=== PATIENT | female | born 1945 | race Caucasian/White ===

== ENCOUNTER 2018-02-28 17:35 | Emergency (ER) | payer MEDICARE, BC ==
[2018-02-28 17:55] VITALS: BP 161/97
--- NOTE | 2018-02-28 18:12 | UC ---
Skin Complaint HPI - HPI Summary HPI Summary: Pt presents with a tick to right inner thigh. She tells me that she was doing some yard work yesterday and thinks this may have been when it was attached to her person. She scrubbed the area, but could not remove all of the tick. Denies fever/chills - History of Current Complaint Chief Complaint: UCSkin Time Seen by Provider: 02/28/18 18:12 Stated Complaint: UPPER RIGHT THIGH TICK Hx Obtained From: Patient Onset/Duration: Sudden Onset Current Severity: None Pain Intensity: 0 - Allergy/Home Medications Allergies/Adverse Reactions: Allergies Allergy/AdvReac Type Severity Reaction Status Date / Time amoxicillin [From Augmentin] Allergy Diarrhea Verified 02/28/18 17:56 clavulanic acid Allergy Diarrhea Verified 02/28/18 17:56 [From Augmentin] Review of Systems Constitutional: Negative Skin: Other - Tick bite right inner thigh Respiratory: Negative Cardiovascular: Negative Neurovascular: Negative Musculoskeletal: Negative Neurological: Negative Psychological: Negative All Other Systems Reviewed And Are Negative: Yes PMH/Surg Hx/FS Hx/Imm Hx Respiratory History: Asthma Psychological History: Anxiety - Surgical History Surgical History: Yes Surgery Procedure, Year, and Place: 1959 knee surgery [facility] [place]. 1965 tonsillectomy [facility] [place]. 1970 & 1974 normal births [facility] [place]. [place] teeth[place] 1992 nasal polyps [facility] [place] - Family History Known Family History: Positive: Unknown - Social History Occupation: Retired Lives: With Family Alcohol Use: Occasionally Substance Use Type: None Smoking Status (MU): Never Smoked Tobacco Type: Cigarettes Length of Time of Smoking/Using Tobacco: 16 years to 23 years Have You Smoked in the Last Year: No When Did the Patient Quit Smoking/Using Tobacco: s - Immunization History Most Recent Influenza Vaccination: 08/2012 Most Recent Tetanus Shot: 11/07/2002 Most Recent Pneumonia Vaccination: 04/2013 Physical Exam - Summary Physical Exam Summary: GENERAL: NAD. WDWN. No pain distress. SKIN: Right inner thigh: there is a <1mm head of a tick within the superficial skin. Mild erythema around the area. No drainage or bleeding. NECK: Supple. Nontender. No lymphadenopathy. CHEST: CTAB. No r/r/w. No accessory muscle use. Breathing comfortably and in no distress. CV: RRR. Without m/r/g. Pulses intact. Brisk cap refill. NEURO: Alert. CN II-XII grossly intact. PSYCH: Age appropriate behavior. Triage Information Reviewed: Yes Vital Signs: Initial Vital Signs Temp 97.7 F 02/28/18 17:50 Pulse 65 02/28/18 17:50 Resp 18 02/28/18 17:50 BP 161/97 02/28/18 17:50 Pulse Ox 100 02/28/18 17:50 Course/Dx - Course Course Of Treatment: I had a long discussion with the patient and she elected for the prophylactic antibiotic. Tick was removed without issue. Pt tolerated well - Diagnoses Provider Diagnoses: Tick bite right inner thigh Discharge - Sign-Out/Discharge Documenting (check all that apply): Discharge/Admit/Transfer - Discharge Plan Condition: Stable Disposition: HOME Prescriptions: DOXYcycline CAP(*) [DOXYcycline 100MG CAP(*)] 200 mg PO DAILY #2 cap Patient Education Materials: Lyme Disease (ED), Tick Bite (ED) Referrals: Sima Carrington MD [Primary Care Provider] - Additional Instructions: If you develop a fever, shortness of breath, chest pain, new or worsening symptoms - please call your PCP or go to the ED. Your blood pressure was high at todays visit. Please see your primary provider within 4 weeks for recheck and re-evaluation. - Billing Disposition and Condition Condition: STABLE Disposition: HOME
== END 2018-02-28 18:35 | disposition home or self-care (01) ==
LOC: UCEAST 17:35
DX: S70.361A Insect bite (nonvenomous), right thigh, initial encounter (principal); W57.XXXA Bitten or stung by nonvenomous insect and other nonvenomous arthropods, initial encounter; Y92.9 Unspecified place or not applicable
CPT/HCPCS: 99211; G0463

== ENCOUNTER 2019-02-24 10:20 | Emergency (ER) | payer MEDICARE, OTHER, BC ==
[2019-02-24 10:40] VITALS: BP 146/96
--- NOTE | 2019-02-24 11:36 | UC ---
Skin Complaint HPI - HPI Summary HPI Summary: WOKE UP THIS AM W/ TICK IN L ARM. NOT ENGORGED. ITCHY. - History of Current Complaint Chief Complaint: UCSkin Time Seen by Provider: 02/24/19 10:22 Stated Complaint: tick in lt arm Hx Obtained From: Patient Onset/Duration: Sudden Onset Pain Intensity: 0 Pain Scale Used: 0-10 Numeric Aggravating Factor(s): Nothing Alleviating Factor(s): Nothing - Allergy/Home Medications Allergies/Adverse Reactions: Allergies Allergy/AdvReac Type Severity Reaction Status Date / Time amoxicillin [From Augmentin] Allergy Diarrhea Verified 02/24/19 10:34 clavulanic acid Allergy Diarrhea Verified 02/24/19 10:34 [From Augmentin] Home Medications: Home Medications Tumeric 1 cap PO DAILY 02/24/19 [History] PMH/Surg Hx/FS Hx/Imm Hx Previously Healthy: Yes Respiratory History: COPD - Surgical History Surgical History: Yes Surgery Procedure, Year, and Place: 1960 knee surgery [facility] 2015 PLASTIC L ARM SURGERY [place]. [address] [facility] [place]. 1970 & [address] [facility] [place]. 1972 [place] teeth[place] [address] [facility] [place] - Family History Known Family History: Positive: Unknown - Social History Alcohol Use: Daily Substance Use Type: None Smoking Status (MU): Never Smoked Tobacco Type: Cigarettes Length of Time of Smoking/Using Tobacco: 18 years to 23 years Have You Smoked in the Last Year: No When Did the Patient Quit Smoking/Using Tobacco: - Immunization History Most Recent Influenza Vaccination: 08/2012 Most Recent Tetanus Shot: 11/07/2002 Most Recent Pneumonia Vaccination: 04/2013 Review of Systems All Other Systems Reviewed And Are Negative: Yes Constitutional: Negative: Fever Skin: Positive: Other - SMALL RED AREA L UPPER ARM/TICK Musculoskeletal: Negative: Arthralgia Physical Exam Appearance: Well-Appearing Vital Signs: Initial Vital Signs Temp 98.4 F 02/24/19 10:33 Pulse 57 02/24/19 10:33 Resp 18 02/24/19 10:33 BP 146/96 02/24/19 10:33 Pulse Ox 98 02/24/19 10:33 Vital Signs Reviewed: Yes Skin: Positive: Other - L uppe arm has non engorged tick; removed w/ no issues Course/Dx - Course Course Of Treatment: nonengorged tick in upper L arm which she noticed this AM. attached <36hrs and pt requested prophylaxis. - Differential Diagnoses - Skin Complaint Differential Diagnoses: Foreign Body, Tick Born Illness, Other - Diagnoses Provider Diagnosis: Tick bite, Tick bite with subsequent removal of tick Discharge - Sign-Out/Discharge Documenting (check all that apply): Patient Departure All imaging exams completed and their final reports reviewed: No Studies - Discharge Plan Condition: Good Disposition: HOME Prescriptions: DOXYcycline CAP(*) [DOXYcycline 100MG CAP(*)] 100 mg PO DAILY 1 Days #2 cap Patient Education Materials: Tick Bite (ED) Referrals: Sima Carrington MD [Primary Care Provider] - Additional Instructions: IF WORSENING F/U W/ PCP - Billing Disposition and Condition Condition: GOOD Disposition: Home
== END 2019-02-24 11:30 | disposition home or self-care (01) ==
LOC: UCEAST 10:20
DX: S40.862A Insect bite (nonvenomous) of left upper arm, initial encounter (principal); W57.XXXA Bitten or stung by nonvenomous insect and other nonvenomous arthropods, initial encounter; Y92.9 Unspecified place or not applicable; J44.9 Chronic obstructive pulmonary disease, unspecified; Z88.1 Allergy status to other antibiotic agents; Z88.0 Allergy status to penicillin; Z87.891 Personal history of nicotine dependence
CPT/HCPCS: 99212; G0463